=== PATIENT | male | born 1970 | race Caucasian/White ===

== ENCOUNTER 2017-11-25 17:15 | Emergency (ER) | payer BC, SELFPAY ==
[2017-11-25 18:37] VITALS: BP 129/86; PULSE 98; RESP 18; TEMP 36.9; O2SAT 98; BMI 38.0
--- NOTE | 2017-11-25 19:00 | HMH.EDUTC ---
[facility] [place] Clinical Impression: Dog bite of right lower leg Qualifiers: Encounter type: initial encounter Qualified Code(s): S81.851A - Open bite, right lower leg, initial encounter; W54.0XXA - Bitten by dog, initial encounter Disposition: Home, Self-Care Condition on Discharge: Good Instructions: DI for Dog Bite Additional Instructions: * Start antibiotic tomorrow since we gave you the first dose tonight. Be sure to take as directed for the full length of time unless someone tells you otherwise * probiotic can help prevent GI side effects common with this antibiotic. Ask your pharmacist to help you find this over the counter * You were given a tdap vaccine. Notify your primary care so they can update your records. This contains tetanus but also pertuss/whopping cough. * elevate as much as possible. the more elevation above your heart, the less swelling and pain * Tylenol/motrin as needed for pain * Monitor closely. Follow up for any sign of infection (redness, increasing pain, heat, thick discolored drainage, swelling, fever, chills, aches, red streaking or ANY other new signs that are concerning) * Ice 15-20 minutes 4-6 times a day helps with bruising/pain * Go home and shower. Irrigate wounds again while you shower. pat dry. Do NOT cover. Keeping open to air is the best for bites unless you are doing something that will increase risk for infection. * Animal bite form will be faxed to local health department. * Follow up with Primary Care in 2 days for wound check. Prescriptions: Amoxicillin/Potassium Clav [Augmentin 875-125 Tablet] 1 tab PO Q12H #14 tab Referrals: Ravi Stacy MD [Primary Care Provider] - (Return to [facility] or ER for new or worsening symptoms this weekend. Otherwise, see Dr. Stacy Monday for wound check. ) Time of Disposition: 19:26 Medical Decision Making Vital Signs: 11/25/17 18:37 Temperature 98.5 F Temperature Source Temporal Artery Scan Pulse Rate [Right Radial] 98 H Respiratory Rate 18 Blood Pressure [Right Arm] 129/86 Blood Pressure Mean [Right Arm] 100 Blood Pressure Source [Right Arm] Automatic Cuff Blood Pressure Position [Right Arm] Sitting 02 Sat by Pulse Oximetry 98 Oxygen Delivery Method Room Air - Praful Inquiry Pt receiving controlled substance: No [facility] [place] HPI - General Stated complaint: Dog bite 11/25/17 @ 1400, inj to right leg Time Seen by Provider: 11/25/17 18:40 Mode of Arrival: Family Vehicle Source of Information: Patient Limitations: No Limitations Description of Symptoms (Recalled from Triage Doc. by RN): PT STATES HE WAS BITTEN BY A DOG AT A [place] AROUND 1400 THIS AFTERNOON ON THE RIGHT CALF. HEENT Symptoms (Recalled from RN notes): No Resp Symptoms (Recalled from RN notes): No Skin Symptoms (Recalled from RN notes): Yes (2 BITE WOUNDS ON RIGHT CALF FROM DOG) MS Symptoms (Recalled from RN notes): No Functional Status (Recalled from RN notes): NA - History of Present Illness Provider Complaint: c/o dog bite that occurred at approx 2pm. 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 He went over to the nearby house and notified the computer artist. Reports the computer artist became disgruntal and that is when the dog bit him, twice in right calf. Survey Chief depgianni was called out. Police report made and trial attorney already contacted. He states it was those people that suggested he seek treatment because he hasn't had a tetanus shot in as long as he can remember. He stayed however for the remainder of the wedding before coming in. No treatment before arrival. Describes the dog as a pit bull mix, medium size. Pain surrounding bites but denies any possibility of fracture. Declining xray. - Related Data Home Medications Medication Instructions Recorded Confirmed Albuterol Sulfate [Proair 1 puff INHALATION Q4-6H PRN 11/25/17 11/25/17 Respiclick] Budesonide/Formoterol Fumarate 2 puffs INHALATION BID 11/25/17
--- NOTE | 2017-11-25 19:05 | ED_ITS ---
[facility] [place] Clinical Impression: Dog bite of right lower leg Qualifiers: Encounter type: initial encounter Qualified Code(s): S81.851A - Open bite, right lower leg, initial encounter; W54.0XXA - Bitten by dog, initial encounter Disposition: Home, Self-Care Condition on Discharge: Good Instructions: DI for Dog Bite Additional Instructions: * Start antibiotic tomorrow since we gave you the first dose tonight. Be sure to take as directed for the full length of time unless someone tells you otherwise * probiotic can help prevent GI side effects common with this antibiotic. Ask your pharmacist to help you find this over the counter * You were given a tdap vaccine. Notify your primary care so they can update your records. This contains tetanus but also pertuss/whopping cough. * elevate as much as possible. the more elevation above your heart, the less swelling and pain * Tylenol/motrin as needed for pain * Monitor closely. Follow up for any sign of infection (redness, increasing pain , heat, thick discolored drainage, swelling, fever, chills, aches, red streaking or ANY other new signs that are concerning) * Ice 15-20 minutes 4-6 times a day helps with bruising/pain * Go home and shower. Irrigate wounds again while you shower. pat dry. Do NOT cover. Keeping open to air is the best for bites unless you are doing something that will increase risk for infection. * Animal bite form will be faxed to local health department. * Follow up with Primary Care in 2 days for wound check. Prescriptions: Amoxicillin/Potassium Clav [Augmentin 875-125 Tablet] 1 tab PO Q12H #14 tab Referrals: Ravi Stacy MD [Primary Care Provider] - (Return to [facility] or ER for new or worsening symptoms this weekend. Otherwise, see Dr. Stacy Monday for wound check. ) Time of Disposition: 19:26 Medical Decision Making Vital Signs: 11/25/17 18:37 Temperature 98.5 F Temperature Source Temporal Artery Scan Pulse Rate [Right Radial] 98 H Respiratory Rate 18 Blood Pressure [Right Arm] 129/86 Blood Pressure Mean [Right Arm] 100 Blood Pressure Source [Right Arm] Automatic Cuff Blood Pressure Position [Right Arm] Sitting 02 Sat by Pulse Oximetry 98 Oxygen Delivery Method Room Air - Praful Inquiry Pt receiving controlled substance: No [facility] [place] HPI - General Stated complaint: Dog bite 11/25/17 @ 1400, inj to right leg Time Seen by Provider: 11/25/17 18:40 Mode of Arrival: Family Vehicle Source of Information: Patient Limitations: No Limitations Description of Symptoms (Recalled from Triage Doc. by RN): PT STATES HE WAS BITTEN BY A DOG AT A [place] AROUND 1400 THIS AFTERNOON ON THE RIGHT CALF. HEENT Symptoms (Recalled from RN notes): No Resp Symptoms (Recalled from RN notes): No Skin Symptoms (Recalled from RN notes): Yes (2 BITE WOUNDS ON RIGHT CALF FROM DOG) MS Symptoms (Recalled from RN notes): No Functional Status (Recalled from RN notes): NA - History of Present Illness Provider Complaint: c/o dog bite that occurred at approx 2pm. 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 He went over to the nearby house and notified the corporate concierge. Reports the corporate concierge became disgruntal and that is when the dog bit him, twice in right calf. Sheriff lara was called out. Police report made and co director already contacted. He states it was those people that suggested he seek treatment because he hasn't had a tetanus shot in as long as he can remember. He stayed however for the remainder
[2017-11-25 19:32] VITALS: BP 126/85; PULSE 89; RESP 18; TEMP 36.9; O2SAT 99
== END 2017-11-25 19:34 | disposition home or self-care (01) ==
PROVIDERS: Emergency Provider Nurse Practitioner Family; Family Provider Family Medicine; PCP Family Medicine
DX: S81.851A Open bite, right lower leg, initial encounter (principal); W54.0XXA Bitten by dog, initial encounter; J45.909 Unspecified asthma, uncomplicated; Z23 Encounter for immunization
CPT/HCPCS: 90471; 90715; 99202

== ENCOUNTER → 2017-12-29 12:15 | Outpatient (CLI) | payer BC, SELFPAY ==
--- NOTE | 2017-12-29 12:19 | XR_ITS ---
XR cervical spine 5V COMPARISON: HISTORY: Generalized neck pain TECHNIQUE: AP lateral and oblique views and spot view of the odontoid FINDINGS: There is normal curvature and alignment. C1-C7 appear intact. There is minor disc space narrowing at the C6-7 level. Oblique films show normal neural foramina bilaterally. The prevertebral soft tissues are normal and the odontoid is normal. IMPRESSION: Minor degenerative disc disease C6-7 are otherwise normal study
== END ==
PROVIDERS: PCP Family Medicine; Visit Provider Nurse Practitioner
DX: M54.12 Radiculopathy, cervical region (principal)
CPT/HCPCS: 72050

== ENCOUNTER → 2018-02-01 07:45 | Outpatient (CLI) | payer BC, SELFPAY | PROVIDERS: Family Provider Family Medicine; PCP Family Medicine; Visit Provider Family Medicine | DX: M54.12 Radiculopathy, cervical region (principal) ==

== ENCOUNTER → 2018-02-02 15:55 | Outpatient (CLI) | payer OTHER, BC, SELFPAY ==
--- NOTE | 2018-02-02 15:57 | MR_ITS ---
MR cervical spine wo con MR 3-d myelogram/MRCP, HISTORY: Neck pain with popping and left arm pain and numbness and tingling ITS.REASON: CERVICAL RADICULOPATHY ORDERING PHYSICIAN: Mainor Lockwood MD PATIENT AGE: 47 years COMPARISON: 12/29/2017 TECHNIQUE: Standard multiplanar multiecho sequences are performed without contrast. 3-D MIP and myelographic images are also rendered and reviewed FINDINGS: There is normal alignment. The craniocervical junction has an unremarkable appearance. C2-C3 is an unremarkable appearance. C3-C4: There is mild left foraminal narrowing from uncovertebral hypertrophy. Anterior disc bulge is present. C4-C5: Unremarkable C5-C6: Minimal bulging disc. C6-C7: Degenerative disc disease. There is a bilobular disc protrusion a small broad-based right paracentral disc protrusion along with the left paracentral disc protrusion/herniation causing left lateral recess narrowing with mild impingement upon the anterior left aspect of the cord.. There is narrowing of the canal at 10 mm. There is mild contour deformity along the anterior left aspect of the cord. C7-T1: Unremarkable. IMPRESSION: 1. There is a bilobular disc protrusion at C6-C7 a small broad-based right paracentral disc protrusion along with the left paracentral disc protrusion/herniation causing left lateral recess narrowing with mild impingement upon the anterior left aspect of the cord.. There is narrowing of the canal at 10 mm. There is mild contour deformity along the anterior left aspect of the cord 2. Mild left foraminal narrowing at C3-C4 from uncovertebral hypertrophy
== END ==
PROVIDERS: Family Provider Family Medicine; PCP Family Medicine; Visit Provider Family Medicine
DX: M54.12 Radiculopathy, cervical region (principal)
CPT/HCPCS: 72141; 76376

== ENCOUNTER → 2018-07-31 16:35 | Outpatient (CLI) | payer MEDICAID, SELFPAY | PROVIDERS: PCP Nurse Practitioner Family; Visit Provider Nurse Practitioner Family | DX: R07.9 Chest pain, unspecified (principal); Z13.220 Encounter for screening for lipoid disorders | CPT/HCPCS: 93005 ==

== ENCOUNTER → 2018-08-14 12:00 | Outpatient (CLI) | payer MEDICAID, SELFPAY ==
[2018-08-14 12:54] LABS: Alanine Aminotransferase 45 U/L (12-78); Albumin Level 3.5 gm/dL (3.4-5.0); Albumin/Globulin Ratio 0.9 (1.1-1.8); Alkaline Phosphatase 98 U/L (46-116); Anion Gap 13.5 mEq/L (5-15); Aspartate Amino Transferase 18 U/L (15-37); Bilirubin,Total 0.5 mg/dL (0.2-1.0); Blood Urea Nitrogen 11 mg/dL (7-18); Calcium 9.5 mg/dL (8.5-10.1); Carbon Dioxide 29 mmol/L (21.0-32.0); Chloride 102 mmol/L (98-107); Chol/HDL Ratio 3.4 (1-3.5); Cholesterol 132 mg/dL (140-200); Creatinine,Serum 1.13 mg/dL (0.70-1.30); Estimated Glomerular Filt Rate 69 ml/min (>60); GFR (African American) 84 ML/MIN (>60); Glucose 105 mg/dL (74-106); HDL Cholesterol 39 mg/dL (27-67); LDL Cholesterol 73 mg/dL (0-130); Potassium 4.5 mmoL/L (3.5-5.1); Sodium 140 mmol/L (136-145); Total Protein,Serum 7.5 gm/dL (6.4-8.2); Triglycerides 99 mg/dL (30-200); VLDL Cholesterol 20 mg/dL (0-40)
[2018-08-14 12:59] LABS: Hemoglobin A1C 5.6 % (0.0-7.0)
== END ==
PROVIDERS: Visit Provider Nurse Practitioner Family
DX: Z13.220 Encounter for screening for lipoid disorders (principal); Z13.1 Encounter for screening for diabetes mellitus
CPT/HCPCS: 36415; 80053; 80061; 83036

== ENCOUNTER 2020-10-21 13:05 | Day surgery (SDC) | payer OTHER, SELFPAY ==
[2020-10-21] VITALS (8 sets, daily range): BP systolic 97–161; BP diastolic 56–106; PULSE 87–115; RESP 16–18; TEMP 36.6–36.9; O2SAT 93–98; BMI 34.9; BMI 35.7
--- NOTE | 2020-10-21 13:16 | HMH.EDGENADL ---
ED Disposition Clinical Impression: Esophageal obstruction due to food impaction Disposition: Still a Patient Condition on Discharge: Fair Referrals: Ravi Stacy MD [Primary Care Provider] - 3 days - Critical Care Critical Care Time: No Attestation: On , the high probability of a clinically significant, sudden or life threatening deterioration of the following system(s) required my full and direct attention, intervention and personal management. The time I documented below is in addition to time spent performing reported procedures but includes the following listed in this critical care notation. Medical Decision Making - Medical Records Medical records reviewed: Yes: I reviewed the patient's medical records. - Praful Inquiry Pt receiving controlled substance: No Medical Decision Narrative: Attempted nitro and Pepsi with no relief. Patient did vomiting, but still feels like he has food stuck at the sternal notch. Nursing staff called , patient taken to operating room for EGD. On my exam and evaluation, there currently no signs of perforated esophagus. General Adult HPI - General Stated complaint: food stuck in throat, unable to swallow Time Seen by Provider: 10/21/20 13:12 Mode of Arrival: Ambulatory Source of Information: Patient, Spouse Limitations: No Limitations - History of Present Illness HPI narrative: This is a 49-year-old male with a past medical history of suspected eosinophilic esophagitis who presents to the emergency department for food bolus for the last hour. He states he was eating spaghetti has an meatballs, chips, a Coke and feels like he has a food bolus stuck in the sternal notch. He can tolerate some of his saliva, but feels like it builds up and then he has to vomit. He has had several episodes of vomiting over the last hour. He has had several episodes of food bolus before and has had to have esophageal dilation and food bolus retrieval. Sometimes he is able to throw up and remove the food bolus himself. He denies any chest pain, shortness of breath. - Related Data Home Medications Medication Instructions Recorded Confirmed Albuterol Sulfate [Proair 1 puff INHALATION Q4-6H PRN 11/25/17 11/25/17 Respiclick] Budesonide/Formoterol Fumarate 2 puffs INHALATION BID 11/25/17 11/25/17 [Symbicort 160-4.5 Mcg Inhaler] Previous Rx's Medication Instructions Recorded Amoxicillin/Potassium Clav 1 tab PO Q12H #14 tab 11/25/17 [Augmentin 875-125 Tablet] Allergies Allergy/AdvReac Type Severity Reaction Status Date / Time INGREDIENT: NO KNOWN - NO Allergy Unknown Uncoded 09/12/17 14:53 KNOWN DRUG ALLERGY SEAFOOD Allergy Unknown ANAPHYLAXIS Uncoded 09/12/17 14:53 [facility] History - Hepatitis A Screen Attestation statement:: This patient has been screened for Hepatitis A risk factors. I have reviewed the patient's past medical history: Yes Medical History: Reports:: Asthma Denies:: Cancer, Diabetes Mellitus Type 1, Diabetes Mellitus Type 2, Hypertension, MRSA Other Surgeries: Yes: Other (vasectomy) Amputation: No Fractures: No - Social History Smoking Status: Never smoker Alcohol Intake: never ROS Obtained: Yes All systems reviewed & no additional complaints Physical Exam - General General appearance: alert, in no apparent distress - Head Head exam: atraumatic, normocephalic - ENT ENT exam: Present: normal exam, normal oropharynx, mucous membranes moist, other (No foreign body posterior oropharynx) - Neck Neck exam: Present: normal inspection, full ROM, trachea midline, other (No crepitus) - Chest Chest inspection: Present: normal inspection, symmetric chest wall rise, other (No crepitus). Absent: tenderness - Respiratory Respiratory exam: Present: normal lung sounds bilaterally. Absent: respiratory distress - Cardiovascular Cardiovascular exam: Present: regular rate, normal rhythm - Neurological Exam Neurolog
--- NOTE | 2020-10-21 13:47 | PC.NURSE ---
gave pt 1 SL nitro in an attempt to relax muscles and then 5 mins later had pt attempt to chug a soda trying to induce vomiting to dislodge the food. Unsuccessful attempt. Contacted Dr. Almonte in his office and advised him of the patient. HE advised he was still in the office and would call pre-op to have them come and get the patient to take him upstairs. Advised pt of POC and he was agreeable. Samara Espana RN arrived at bedside shortly after and took pt to pre-op.
[2020-10-21 14:52] LABS: Coronavirus 19 IgG Antibody Positive (Negative); Coronavirus 19 IgM Antibody Negative (Negative)
--- NOTE | 2020-10-21 15:26 | HMH.SCOPE ---
- Procedure: Date: 10/21/20 Patient Date of :: 1970 Procedure Performed:: Esophagogastroscopy with foreign body removal Indications:: Esophageal foreign body Performing Provider:: Latrell Almonte MD Referring Provider:: Emergency department Sedation:: Monitored anesthesia care Procedure:: After informed consent was obtained the patient was taken to the endoscopy suite. Sedation ensued after the patient was transferred to the left lateral decubitus position. Pulse, blood pressure, and oxygen saturation were monitored throughout the procedure. The endoscope was advanced into the gastric lumen. Retroflexion within the gastric lumen was accomplished. The gastroscope was carefully removed and the patient was transferred to recovery in stable condition. Please see findings and specimens below for detail. Findings:: Distal esophageal foreign body consistent with food particles removed via Zepeda net in a retrograde fashion Distal esophageal/esophageal junction stricture Gastroscope advanced beyond distal esophageal stricture with minimal difficulty Specimens:: None Recommendations:: Proton pump inhibition Clear liquid diet for 24 hours followed by full liquid diet for 24 hours followed by soft diet Repeat esophagogastroduodenoscopy near future Complications:: No immediate Estimated blood obtained (mL): 0
--- NOTE | 2020-10-21 16:01 | HMH.ANESCL ---
[facility] Anesthesia Checklist - Patient Identification Patient Identification: Arm Band - Structural Data Admitted From: Emergency Dept Planned Operative Procedure/s: removal fb esophagus Consent for Planned Operative Procedure(s) Verified: Yes Verified Documents: Surgical Consent, History and Physical - NPO Status Verified Time NPO: 00:00 - Additional verifications Anesthesia Reactions: No - Airway Assessment C-Spine Mobility Assessed: Yes (mp2) TMJ Mobility Assessed: Yes Dentition: Good Dentition - Neurological Assessment Level of Consciousness: Awake, Alert - Anesthesia Plan Anesthesia Risk discussed: Yes Anesthesia Plan: Verified ASA Class: II (e) Anesthesia Type: MAC [facility] History I have reviewed the patient's past medical history: Yes Medical History: Reports:: Asthma Denies:: Cancer, Diabetes Mellitus Type 1, Diabetes Mellitus Type 2, Hypertension, MRSA, Seizures *Have you ever received a pneumonia vaccine?: No *Have you received a flu vaccine this season?: No Anesthesia experience/problems:: nac Other Surgeries: Yes: Other (vasectomy) Amputation: No Fractures: No - *Social History Last grade of school completed: Advanced degree Smoking Status: Never smoker Alcohol Intake: never Substance Use Type: denies use *Occupational Status:: employed *Travel in the last 8 weeks: None Family Hx:: No significant family history
== END 2020-10-21 15:55 | disposition home or self-care (01) ==
LOC: ER 13:35 → SDC 13:39
PROVIDERS: Surgery; Emergency Provider Emergency Medicine; PCP Family Medicine; Visit Provider Surgery
PROC: 0DJ08ZZ Inspection of Upper Intestinal Tract, Via Natural or Artificial Opening Endoscopic (ICD-10-PCS; CPT 43235; principal; 2020-10-21 15:00)
DX: K22.2 Esophageal obstruction (principal); T18.128A Food in esophagus causing other injury, initial encounter; J45.909 Unspecified asthma, uncomplicated
CPT/HCPCS: 43215; 86328; 99283

== ENCOUNTER → 2020-11-03 08:42 | Outpatient (CLI) | payer OTHER, SELFPAY ==
--- NOTE | 2020-11-03 08:43 | FL_ITS ---
PROCEDURE: FL BARIUM SWALLOW CLINICAL INDICATION: difficulty swallowing COMPARISON: No exams were available for comparison TECHNIQUE: In the upright position the patient was observed to swallow barium in both the AP and lateral view. The cervical esophagus was examined under fluoroscopy with images obtained. The patient was then placed prone in the right anterior oblique position and was observed to swallow barium with Valsalva technique . FLUOROSCOPY TIME: 1 minutes and 52 seconds FINDINGS: There was no evidence of aspiration. There was normal peristalsis. No filling defects or mucosal abnormalities. There is persistent smooth narrowing of the distal esophagus. This is felt to have been due to spasm. A barium tablet was given but do not immediately pass but subsequently did pass once the esophagus relaxed. No hiatal hernia evident. There has been prior anterior cervical disc fusion at C6-C7 IMPRESSION: Distal esophageal spasm which subsided during the exam. Otherwise negative barium swallow Dictated by: Fredy Mayes MD 11/03/2020 14:51 Fredy Mayes MD in [place] 11/03/2020 14:51
== END ==
PROVIDERS: PCP Family Medicine; Visit Provider Surgery
DX: R13.10 Dysphagia, unspecified (principal)
CPT/HCPCS: 74220

== ENCOUNTER 2022-03-12 19:48 | Emergency (ER) | payer BC, SELFPAY ==
[2022-03-12 20:20] VITALS: BP 151/88; PULSE 107; RESP 18; TEMP 37.8; O2SAT 99; BMI 38.0
--- NOTE | 2022-03-12 20:28 | HMH.EDUTC ---
[facility] – [place] Disposition Clinical Impression: Viral syndrome, Exposure to COVID-19 virus Disposition: Home, Self-Care Condition on Discharge: Good Instructions: DI for Viral Syndrome, DI for COVID-19 (Suspected or Confirmed ), Preventing the Spread of Coronavirus Discharge Instructions Additional Instructions: Drink plenty of fluids. Take tylenol for pain or fever. Return if you begin to have difficulty breathing. Follow up with your regular doctor. GO TO THE ER FOR ANY WORSENING SYMPTOMS Quarantine until you know the results of your covid-19 test. If it is positive, Notify your school or workplace of your results and follow their instructions regarding return to work/school. Prescriptions: Albuterol Sulfate [Albuterol Sulfate Hfa] 2 puffs IH Q6HP PRN 30 Days #1 each PRN Reason: Shortness Of Breath Transmission Status: Received by [id number] Ondansetron [Zofran 4mg ODT] 4 mg PO Q8HP PRN #20 tab PRN Reason: Nausea Transmission Status: Received by [id number] Referrals: Ravi Stacy MD [Primary Care Provider] - Time of Disposition: 20:33 Medical Decision Making - Medical Records Medical records reviewed: No: I reviewed the patient's medical records. - Praful Inquiry Pt receiving controlled substance: No Vital Signs: 03/12/22 20:20 03/12/22 20:38 Temperature 100.0 F H 100.0 F H Temperature Source Oral Pulse Rate 107 H Pulse Rate [Left Radial] 107 H Respiratory Rate 18 18 Blood Pressure 151/88 H Blood Pressure [Right Arm] 151/88 H Blood Pressure Mean [Right Arm] 109 02 Sat by Pulse Oximetry 99 - Lab Data Lab results reviewed: Yes: I reviewed the patient's lab results. [facility] – [place] HPI - General Stated complaint: Covid test Time Seen by Provider: 03/12/22 20:30 - History of Present Illness Provider Complaint: He has been having chills, fatigue, malaise and a cough since yesterday. - Related Data Home Medications Medication Instructions Recorded Confirmed Albuterol Sulfate [Proair 1 puff INHALATION Q4-6H PRN 11/25/17 11/11/20 Respiclick] Budesonide/Formoterol Fumarate 2 puffs INHALATION BID 11/25/17 11/11/20 [Symbicort 160-4.5 Mcg Inhaler] esomeprazole magnesium 40 mg 40 mg PO BID cap 10/28/20 11/11/20 capsule,delayed release Previous Rx's Medication Instructions Recorded Albuterol Sulfate [Albuterol 2 puffs IH Q6HP PRN 30 Days #1 each 03/12/22 Sulfate Hfa] Ondansetron [Zofran 4mg ODT] 4 mg PO Q8HP PRN #20 tab 03/12/22 Allergies Allergy/AdvReac Type Severity Reaction Status Date / Time dairy Allergy Severe Difficulty Uncoded 11/11/20 14:28 Breathing INGREDIENT: NO KNOWN - NO Allergy Unknown Uncoded 11/11/20 14:28 KNOWN DRUG ALLERGY SEAFOOD Allergy Unknown ANAPHYLAXIS Uncoded 11/11/20 14:28 [facility] History - Hepatitis A Screen Attestation statement:: This patient has been screened for Hepatitis A risk factors. I have reviewed the patient's past medical history: Yes Medical History: Reports:: Asthma Denies:: Cancer, Diabetes Mellitus Type 1, Diabetes Mellitus Type 2, Hypertension, MRSA, Seizures Other Surgeries: Yes: EGD, Other Amputation: No Fractures: No - Social History Smoking Status: Never smoker Alcohol Intake: never Substance Use Type: denies use Occupational Status: employed Family Hx:: No significant family history ROS Obtained: Yes All systems reviewed & no additional complaints - Constitutional Constitutional: Reports as per HPI - Eyes Eyes: Denies eye discharge - ENT Ears, Nose, Mouth, and Throat: Reports as per HPI - Cardiovascular Cardiovascular: Denies chest pain - Respiratory Respiratory: Denies chest congestion, Reports cough Physical Exam - General General appearance: alert, in no apparent distress - Head Head exam: atraumatic, normocephalic, normal inspection - Eye Eye exam: Present: normal appearance, PERRL, EOMI - ENT ENT exam: Presen
[2022-03-12 20:38] VITALS: BP 151/88; PULSE 107; RESP 18; TEMP 37.8
== END 2022-03-12 20:39 | disposition home or self-care (01) ==
PROVIDERS: Emergency Provider Nurse Practitioner Family; PCP Family Medicine
DX: U07.1 COVID-19 (principal); J45.909 Unspecified asthma, uncomplicated; Z79.51 Long term (current) use of inhaled steroids; Z91.011 Allergy to milk products; Z91.013 Allergy to seafood
CPT/HCPCS: 99213; C9803; G0463; U0003; U0005

== ENCOUNTER 2022-08-21 08:37 | Emergency (ER) | payer BC, SELFPAY ==
[2022-08-21 09:45] VITALS: BP 148/91; PULSE 88; RESP 18; TEMP 36.8; O2SAT 99; BMI 37.2
[2022-08-21 10:03] VITALS: BP 148/91; PULSE 88; RESP 18; TEMP 36.8; O2SAT 99
--- NOTE | 2022-08-21 10:06 | EXP.UTC ---
Discharge Plan Disposition Patient Disposition: Home, Self-Care Condition: Good Prescriptions Prescriptions: New budesonide-formoterol [Symbicort] 160-4.5 mcg/actuation HFA aerosol inhaler 2 puff inhalation BID 30 Days Qty: 10.2 0RF albuterol sulfate [Proventil HFA] 90 mcg/actuation HFA aerosol inhaler 1 inh inhalation Q6H PRN (Reason: shortness of breath or wheezing) Qty: 8.5 0RF No Action esomeprazole magnesium [Nexium] 40 mg capsule,delayed release(DR/EC) 40 mg PO BID budesonide-formoterol 0 HFA aerosol inhaler 2 puffs INHALATION BID Label Comments: albuterol sulfate 108 aerosol powdr breath activated 1 puff INHALATION Q4-6H PRN (Reason: ASTHMA) Label Comments: albuterol sulfate 8.5 GM HFA aerosol inhaler 2 puffs IH Q6HP PRN (Reason: Shortness Of Breath) 30 Days Qty: 1 5RF ondansetron 4 MG tablet,disintegrating 4 mg PO Q8HP PRN (Reason: Nausea) Qty: 20 0RF Referrals Follow up/Referrals: Ravi Stacy MD [Primary Care Provider] - See instructions Activity Restrictions/Add. Instructions Additional Instructions/Restrictions: Make sure to make appointment with your PCP Return if needed Straight to ER if any life threatening symptoms Clinical Impressions Clinical Impression: Encounter for medication refill Instructions Patient Instructions: Asthma -- Adult Discharge ED Provider: Violetta Hagan [facility] General Stated complaint: Wheezing, lung congestion Mode of Arrival: Ambulatory Source of Information: Patient Limitations: No Limitations Time Seen by Provider: 08/21/22 10:06 Description of Symptoms (Recalled from Triage Doc. by RN): PATIENT C/O WHEEZING AND REPORTS BEING OUT OF HIS SYMBICORT HEENT Symptoms (Recalled from RN notes): No Resp Symptoms (Recalled from RN notes): Yes Skin Symptoms (Recalled from RN notes): No MS Symptoms (Recalled from RN notes): No Functional Status (Recalled from RN notes): WNL History of Present Illness Provider Complaint: Patient states that he missed his appointment with his PCP to get his symbicort refilled and when he goes without it he gets wheezing at times States that he woke up this morning feeling a little wheezy so he came in to see if he could get a refill on symbicort and albuterol to get him through until he can see his PCP states that he feels better now that he is up and moving around Related Data Home Medications Medication Instructions Recorded Confirmed albuterol sulfate 90 mcg/actuation 1 puff inhalation Q4-6H PRN ASTHMA 11/25/17 11/11/20 breath activated powder inhaler budesonide-formoterol HFA 160 2 puffs inhalation BID Asthma 11/25/17 11/11/20 mcg-4.5 mcg/actuation aerosol inhaler esomeprazole magnesium 40 mg 40 mg PO BID 10/28/20 11/11/20 capsule,delayed release (Nexium) Previous Rx's Medication Instructions Recorded albuterol sulfate 90 mcg/actuation 2 puffs inhalation Q6HP PRN 03/12/22 aerosol inhaler Shortness Of Breath 30 days #1 ea ondansetron 4 mg disintegrating 4 mg PO Q8HP PRN Nausea #20 tabs 03/12/22 tablet albuterol sulfate 90 mcg/actuation 1 inh inhalation Q6H PRN shortness 08/21/22 aerosol inhaler (Proventil HFA) of breath or wheezing #8.5 grams budesonide-formoterol HFA 160 2 puff inhalation BID 30 days 08/21/22 mcg-4.5 mcg/actuation aerosol #10.2 grams inhaler (Symbicort) Allergies Allergy/AdvReac Type Severity Reaction Status Date / Time Fish Containing Products Allergy Verified 08/21/22 10:02 Milk Containing Products Allergy Verified 08/21/22 10:02 Worker's Comp Is this a Worker's Comp case?: No PFSH PFSH Medical History (Updated 08/21/22 @ 10:16 by Violetta Hagan APRN) Asthma Social History (Updated 08/21/22 @ 10:01 by Phyllis Wallace RN) Smoking Status: Never smoker alcohol intake: never substance use type: denies use current occupational status: employed Travel in the last 8 weeks: None caffeine: Yes
== END 2022-08-21 10:22 | disposition home or self-care (01) ==
PROVIDERS: Emergency Provider Nurse Practitioner; PCP Family Medicine
DX: J45.909 Unspecified asthma, uncomplicated (principal); R11.0 Nausea; Z79.51 Long term (current) use of inhaled steroids; Z79.899 Other long term (current) drug therapy; Z91.011 Allergy to milk products; Z91.013 Allergy to seafood
CPT/HCPCS: 99212; G0463

== ENCOUNTER → 2025-05-15 10:17 | Outpatient (CLI) | payer BC, SELFPAY ==
--- OUTSIDE RECORDS SUMMARY | 2023-11-21 12:30 | XMS_ITS ---
Author Organization [facility] Address [address] [place] [phone] Care Team Providers Care Lacquer Coater Name Role Phone Hemant Echavarria Primary Care Provider Janeth Stacy Reza Unavailable [phone] Allergies No Known Allergies Results Component Value Reference Range Notes Urinalysis - Inhouse Reviewed date:11/22/2023 11:01:15 AM Interpretation: Performing Lab: Notes/Report: Color/Clarity straw/clear Leuk neg Nitrite neg Urobili 3.2 Protein neg pH 7.0 Blood 2+ Sp. Gr. 1.010 Ketone neg Bili neg Gluc neg REASON FOR VISIT discolored urine, concerns of kidney stones Medications Medication SIG (Take, Route, Frequency, Duration) Notes Start Date End Date Status Omeprazole 40 MG 1 cap(s) orally once a day prn Active Symbicort 160-4.5 MCG/ACT INHALE 2 PUFFS INTO THE LUNGS TWICE DAILY; Duration: 90 Active Betamethasone Dipropionate Aug 0.05 % 1 application Externally Two times a day 06/08/2023 Not-Taking Albuterol Sulfate HFA 108 (90 Base) MCG/ACT INHALE 2 PUFFS EVERY 4 HOURS NEEDED; Duration: 30 Active Aspir-Low 81 MG 1 tablet Orally Once a day; Duration: 30 day(s) Active Paxlovid (300/100) 20 x 150 MG & 10 x 100MG 3 tablets Orally Twice a day; Duration: 5 day(s) 10/09/2023 Not-Taking Vital Signs Weight 268.6 lbs 11/21/2023 Blood pressure systolic 140 mm Hg 11/21/19 24 Blood pressure diastolic 86 mm Hg 024 Heart Rate 104 /min 11/21/2023 Height 69 in 11/21/2023 BMI 39.66 kg/m2 11/21/2023 Encounters Encounter Location Date Provider Diagnosis [facility] [address] [facility] [address] [place] [id number] 11/21/2023 Janeth Stacy Hematuria R31 .9 Assessments Encounter Date Diagnosis (ICD Code) Assessment Notes Treatment Notes Treatment Clinical Notes Section Notes 11/21/2023 Hematuria (ICD-10 - R31.9) He may have initially passed a small stone and is having some residual discomfort and hematuria. Suggest he continue to drink plenty of fluids and repeat urinalysis in 1 to 2 weeks to assure resolution of hematuria. Plan Of Treatment Treatment Notes Assessment Notes Hematuria He may have initiall y passed a small stone and is having some residual discomfort and hematuria. Suggest he continue to drink plenty of fluids and repeat urinalysis in 1 to 2 weeks to assure resolution of hematuria. Next Appt Details Follow Up: 1 Week, 2 Weeks f or UA only, Reason: Progress Notes * Philly DEEeDOB:1970 ( 54 yo M)Acc No.[id number]:11/21/2023 Progress Notes Patient: Pelon URBAN Provider: Janeth Stacy M.D. :1970 A ge:53 Y S ex:Male Date:11/21/2023 Address:[address] [place] [address], [id number] Pcp:Hemant Echavarria Subjective: * Chief Complaints: * 1 . Discolored urine, concerns of kidney stones. * HPI: M jose cruz Reproductive: He has a past history of kidney stones and 2 weeks ago noticed a single episode of dark-colored urine but no sho blood. There was no associated flank pain. He has been drinking extra fluids and his urine color now seems normal but he has noticed some mild urethral discomfort intermittently. * ROS: D ERMATOLOGY: no R surinder. n o H marvel. G ASTROENTEROLOGY: no N ausea. n o V omiting. n o D iarrhea.? U ROLOGY: no D ifficulty urinating. n o B lood in urine. * Medical History: A sthma, Kidney stones, Heart palpitations due to caffeine intake, Environmental allergies. * Surgical History: v asectomy , kidney stones , Cervical Discectomy - Dr. Soliman 06/18/18, Umbilical Hernia Repair 12/15/2022. * Family History: F ather: alive 80 yrs, diagnosed with Diabetes, Hypertension. M other: alive 86 yrs. 2 brother(s) . 3 son(s) . . 3 step sisters, 1 step brother. * Social History: C URRENT TOBACCO USE: No . C affeine: yes, frequency: 2 sodas daily. Home smoke detector use: yes. Alcohol: No. * Medications: T aking Aspir-Low 81 MG Tablet Delayed Release 1 tablet Orally Once a day , Taking Omeprazole 40 MG Capsule Delayed Release 1 cap(s) orally once a day prn , Taking Symbicort 160-4.5 MCG/ACT Aerosol INHALE 2 PUFFS INTO THE LUNGS TWICE DAILY , Taking Albuterol Sulfate HFA 108 (90 Base) MCG/ACT Aerosol Solution INHALE 2 PUFFS EVERY 4 HOURS NEEDED , Not-Taking Betamethasone Dipropionate Aug 0.05 % Cream 1 application Externally Two times a day , Not-Taking Paxlovid (300/100) 20 x 150 MG & 10 x 100MG Tablet Therapy Pack 3 tablets Orally Twice a day , Medication List reviewed and reconciled with the patient * Allergies: N .K.D.A. Objective: * Vitals: W t:268.6, Temp:98.4, BP:140/86, HR:104, O2 Sat:99% on RA, Nurse:CLAUDIA, Ht: 69, BMI:39.66. * Examination: G eneral Examination: General Appearance: N AD. A bdomen: Soft and nontender. No CVA tenderness. Assessment: * Assessment: 1. H ematuria - R31.9 (Primary) Plan: * Treatment: Value Reference Range C olor/Clarity straw/clear * L euk neg * N itrite neg * U robili 3.2 * P rotein neg * p H 7.0 * B lood 2+ * S p. Gr. 1.010 * K etone neg * B lis neg * G willie neg * Ileana John 11/21/2023 4: 23:27 PM > , Provider reviewed results while patient in office. Notes: He may have initially passed a small stone and is having some residual discomfort and hematuria. Suggest he continue to drink plenty of fluids and repeat urinalysis in 1 to 2 weeks to assure resolution of hematuria.?? * Procedure Codes: 8 1002 Urinalysis, no micro, 74896 PULSE OX * Follow Up: 1 Week, 2 Weeks for UA only * Images: Billing Information: * Visit Code: 36198 Office Visit, Est Pt., Level 3. * Procedure Codes: 11859 Urinalysis, no micro. 90737 PULSE OX. * Electronic signature of Janeth Stacy MD on 05/15/2025 at 10:21 AM EDT Sign off status: Pending * Provider: Janeth Stacy M.D. Date: 0 11/21/2023 Generated for Aki tapia/Aida/Saúlitting on: 0 05/15/2025 10:21 AM EDT History and Physical Notes * Examination Category Sub-Category Detail Notes Category Not es General Examination Abdomen: Soft and nontender. N o CVA tenderness General Appearance: NAD
--- OUTSIDE RECORDS SUMMARY | 2024-07-23 07:15 | XMS_ITS ---
Author Organization [facility] Address [address] [facility] [address] [place] [phone] Care Team Providers Care Fabric Worker Name Role Phone Hemant Echavarria Primary Care Provider Janeth Stacy Unavailable [phone] Allergies No Known Allergies REASON FOR VISIT Poison [place] or Shingles Medications Medication SIG (Take, Route, [...] Encounter Location Date Provider Diagnosis Jorge [address] [facility] [address] [place] [phone] 07/23/2024 Janeth Stacy Shingles B02.9 Assessments Encounter [...] * Phil[place] DEEeDOB:1970 ( 54 yo M)Acc No.[id number]:07/23/2024 Progress Notes Patient: Pelon URBAN Provider: Janeth Stacy M.D. :1970 A ge:53 Y S ex:Male Date:07/23/2024 Address:[address] [place] [address], [id number] Pcp:Hemant Echavarria Subjective: * Chief Complaints: * 1 . Poison [place] or Shingles. * HPI: D ermatology: 53 [...] x 5 cm. Assessment: * Assessment: 1. [facility] - B02.9 (Primary) Plan: * Treatment: * Procedure Codes: 9 4760 PULSE OX * Follow Up: p rn * Images: Billing Information: * Visit Code: 66595 Office Visit, Est Pt., Level 3. * Procedure Codes: 50898 PULSE OX. * Electronic signature of Janeth Stacy MD on 05/15/2025 at 10:21 AM EDT Sign off status: Pending * Provider: Janeth Stacy M.D. Date: Generated for Aki tapia/Aida/Saúlitting on: 0 05/15/2025 [...]
--- OUTSIDE RECORDS SUMMARY | 2025-04-24 10:30 | XMS_ITS ---
Author Organization [facility] Address [address] [place] [id number] Care Team Providers Care Hand Dry Cleaner Name Role Phone Hemant Echavarria Primary Care Provider [phone] Janeth Stacy Unavailable [phone] Allergies No Known Allergies Reason For Referral Reason Risk stratification due to strong family hx of heart disease Diagnosis 1 Family history of he art disease (Z82.49) Ref[facility] Referring Provider First Name Janeth Cobb Referring Provider Last Name Regis Referring Provider Speciality Family Pra ctice Referred Provider Rayshawn Davis Referred Provider Specialty Cardiovascul ar Disease General Notes Kanwal Pineda 2024 10:48:59 AM > faxed to [facility] Cardiology, Kanwal Pineda 05/01/2025 10:36:43 AM > received by Dotty at [facility] Cardiology Referral Priority Routine REASON FOR VISIT [...] W/U Status Risk Notes Problem Sleep apnea (G47.30) Active confirmed Problem Overweight (467493548) Overweight (E66.3) Active confirmed Vital Signs Weight 261.2 lbs 04/24/2025 Blood pressure systolic 120 mm Hg 04/24/20 25 Blood pressure diastolic 80 mm Hg 025 Heart Rate 82 /min 04/24/2025 Height 69 in 04/24/2025 BMI 38.57 kg/m2 04/24/2025 Encounters Encounter Location Date Provider Diagnosis [facility] [address] [place] [id number] 04/24/2025 Janeth Stacy Screening for diabet es [...] Treatment Pending Test Test Name Order Date Lipid Profile 04/24/2025 Prostate Specific Antigen (PSA) 04/24/20 25 Glycohemoglobin (HbA1C) 04/24/2025 CMP 04/24/2025 sleep study 04/24/2025 Cologuard 04/24/2025 Referrals Referral Date Details 04/25/2025 04/25/2025, Risk str atification due to strong family hx of heart disease, Rayshawn Davis Next Appt Details Follow Up: via phone to repo rt test results, Reason: Progress Notes * Christopher DEEOB:1970 ( 54 yo M)Acc No.[id number]:04/24/2025 Progress Notes Patient: Andrea KRISHNAMURTHY Pelon Provider: Janeth Stacy M.D. :1970 A ge:54 Y S ex:Male Date:04/24/2025 Address:[address] [place] [address] [place], [id number] Pcp:Hemant Echavarria Subjective: * Chief Complaints: * 1 . Wellness visit/wants referrals. * HPI: H PI: Patient comes in for an annual checkup and has several concerns. This 56-year-old brother last year with a heart attack. Pelon denies any cardiac symptoms but would like to see a pad hand for risk stratification. E NT/respiratory: His tells [...] of heart disease 3.?Screening for colon cancer?LAB: Cologuard * Labs: * L ab: Glycohemoglobin (HbA1C) L ab: Prostate Specific Antigen (PSA) L ab: CMP L ab: Lipid Profile * Procedure Codes: 1 036F TOBACCO NON-USER, 3074F SYST BP LT 130 MM HG, 3079F DIAST BP 80-89 MM HG * Follow Up: v ia phone to report test results * Images: Billing Information: * Visit Code: 76353 Office Visit, Est Pt., Level 4. * Procedure Codes: 1036F TOBACCO NON-USER. 3074F SYST BP LT 130 MM HG. 3079F DIAST BP 80-89 MM HG. * Electronic signature of R Farshad Stacy , MD on 05/15/2025 at 10:20 AM EDT Sign off status: Pending * Provider: Janeth Stacy M.D. Date: 0 04/24/2025 Generated for Aki tapia/Aida/Priti on: 0 05/15/2025 10:20 AM EDT History and Physical Notes * [...]
--- OUTSIDE RECORDS SUMMARY | 2025-05-15 10:21 | XMS_ITS | Patient Health Record ---
Author Organization [facility] Address [address] [place] [phone] Care Team Providers Care Wax Blender Name Role Phone Hemant Echavarria Primary Care Provider Janeth Stacy Unavailable [phone] Allergies No Known Allergies Reason For Referral Reason Risk stratification due to strong family hx of heart disease Diagnosis 1 Family history of he art disease (Z82.49) [facility] Referring Provider First Name Janeth Cobb Referring Provider Last Name Regis Referring Provider Speciality Family Pra ctice Referred Provider Rayshawn Davis Referred Provider Specialty Cardiovascul ar Disease General Notes Kanwal Pineda 2024 10:48:59 AM > faxed to [facility] Cardiology, Kanwal Pineda 05/01/2025 10:36:43 AM > received by Dotty at [facility] Cardiology Referral Priority Routine Medications Medication SIG (Take, Route, Frequency, Duration) [...] Once a day; Duration: 30 day(s) Active Immunizations Vaccine Route Administration Date Status Comme nts COVID 19 Pfizer Unknown 05/13/2021 Administered Problems Problem Type SNOMED Code ICD Code Onset Dates Problem Status W/U Status Risk Notes Problem Gastroesophageal reflux disease (409188608) GERD (gastroesophage al reflux disease) (K21.9) Active confirmed Problem Seasonal allergy (901601956) Seasonal allergies (J30.2) Active confirmed Problem Asthma (925213947) Asthma (J45.909) Active confirmed Problem Sleep apnea (09809171) Sleep apnea (G47.30) Active confirmed Problem Overweight (912605865) Overweight (E66.3) Active confirmed Problem Excessive thirst (78896600) Polydipsia (R63.1) Active confirmed Problem Exacerbation of intermittent asthma (928926170) Asthmatic bronchitis, mild intermittent, with acute exacerbation (J45.21) Active confirmed Problem Displacement of cervical intervertebral disc without myelopathy (85986437) Herniated disc, cervical (M50.20) Active confirmed Vital Signs Heart Rate 82 /min 04/24/2025 Blood pressure diastolic 80 mm Hg 04/24/2025 Height 69 in 04/24/2025 Blood pressure systolic 120 mm Hg 04/24/2025 Weight 261.2 lbs 04/24/2025 BMI 38.57 kg/m2 04/24/2025 Encounters Encounter Location Date Provider [facility] [address] [place] [address] [place] [phone] 07/23/2024 Janeth Stacy [address] [facility] [address] [phone] 04/24/2025 Janeth Stacy Screening for diabet es [...] Recommmend he consider taking the shingles vaccine 04/24/2025 Screening for diabetes mellitus (ICD-10 - [...] CMP 04/24/2025 sleep study 04/24/2025 Cologuard 04/24/2025 Insurance Providers Payer Name Payer Address Payer Phone Subscriber Number Group Number Insured Name Patient Relationship to Insured Coverage Start Date Coverage End Date FANNY WARNER [address] [place] [address] [id number] LEILA, Pelon Self - patient is the insured Medical (General) History Medical History History ICD Code Asthma kidney stones heart palpitations due to caffeine intak e Environmental allergies Surgical History Surgery Date(Month/Year) vasectomy kidney stones Cervical Discectomy - Dr. Soliman 06/18/18 Umbilical Hernia Repair 12/15/2022 Hospitalization History Reason Date(Month/Year)
== END ==
LOC: SL 10:18
PROVIDERS: PCP Family Medicine; Visit Provider Family Medicine
DX: G47.33 Obstructive sleep apnea (adult) (pediatric) (principal); E66.9 Obesity, unspecified; J45.909 Unspecified asthma, uncomplicated
CPT/HCPCS: G0399

== ENCOUNTER 2025-06-05 10:17 | Outpatient (CLI) | payer BC, SELFPAY ==
--- OUTSIDE RECORDS SUMMARY | 2024-07-23 07:15 | XMS_ITS ---
Author Organization [facility] Address [address] [facility] [address] [place] [phone] Care Team Providers Care Software Tools Build Engineer Name Role Phone Heamnt Echavarria Primary Care Provider Janeth Stacy Unavailable [phone] Allergies No Known Allergies REASON FOR VISIT Poison [place] or Shingles Medications Medication SIG (Take, Route, [...] Encounter Location Date Provider Diagnosis Jorge [address] [facility] [address] [place] [phone] 07/23/2024 Janeth Stacy Shingles B02.9 Assessments Encounter [...] * Phil[place] DEEeDOB:1970 ( 54 yo M)Acc No.[id number]:07/23/2024 Progress Notes Patient: Pelon URBAN Provider: Janeth Stacy M.D. :1970 A ge:53 Y S ex:Male Date:07/23/2024 Address:[address] [place] [address], [facility] [id number] Pcp:Hemant Echavarria Subjective: * Chief Complaints: * 1 . Poison [place] or Shingles. * HPI: D ermatology: 53 [...] x 5 cm. Assessment: * Assessment: 1. [facility] - B02.9 (Primary) Plan: * Treatment: * Procedure Codes: 9 4760 PULSE OX * Follow Up: p rn * Images: Billing Information: * Visit Code: 18902 Office Visit, Est Pt., Level 3. * Procedure Codes: 40407 PULSE OX. * Electronic signature of Janeth Stacy MD on 06/05/2025 at 10:31 AM EDT Sign off status: Pending * Provider: Janeth Stacy M.D. Date: Generated for Aki tapia/Aida/Saúlitting on: 0 06/05/2025 10:31 AM EDT History and Physical Notes * [...]
--- OUTSIDE RECORDS SUMMARY | 2025-04-24 10:30 | XMS_ITS ---
Author Organization [facility] Address [address] [place] [phone] Care Team Providers Care Executive Advisor Name Role Phone Hemant Echavarria Primary Care Provider Janeth Stacy Unavailable [phone] Allergies No Known Allergies Results Component Value [...] of he art disease (Z82.49) Referral [facility] Referring Provider First Name Janeth Cobb Referring Provider Last Name Regis Referring Provider Speciality Family Pra ctice Referred Provider Rayshawn Davis Referred Provider Specialty Cardiovascul ar Disease General Notes Kanwal Pineda 2024 10:48:59 AM > faxed to [facility] Cardiology, Kanwal Pineda 05/01/2025 10:36:43 AM > received by Dotty at [facility] Cardiology Referral Priority Routine REASON FOR [...] W/U Status Risk Notes Problem Sleep apnea (72102779) Sleep apnea (G47.30) Active confirmed Problem Overweight (707535042) Overweight (E66.3) Active confirmed Vital Signs Weight 261.2 lbs 04/24/2025 Blood pressure systolic 120 mm Hg 04/24/20 25 Blood pressure diastolic 80 mm Hg 025 Heart Rate 82 /min 04/24/2025 Height 69 in 04/24/2025 BMI 38.57 kg/m2 04/24/2025 Encounters Encounter Location Date Provider Diagnosis [facility] [address] [facility] [address] [place], [place] [phone] 04/24/2025 Janeth Stacy Screening for diabet es [...] * Philly DEEeDOB:1970 ( 54 yo M)Acc No.[id number]:04/24/2025 Progress Notes Patient: Pelon URBAN Provider: Janeth Stacy M.D. :1970 A ge:54 Y S ex:Male Date:04/24/2025 Address:[address] [place] [address], [place], [place] Pcp:Hemant Echavarria Subjective: * Chief Complaints: * 1 . Wellness visit/wants referrals. * HPI: H PI: Patient comes in for an annual checkup and has several concerns. This 56-year-old brother last year with a heart attack. Pelon denies any cardiac symptoms but would like to see a fiscal clerk for risk stratification. E NT/respiratory: His tells [...] * Images: Billing Information: * Visit Code: 28980 Office Visit, Est Pt., Level 4. * Procedure Codes: 1036F TOBACCO NON-USER. 3074F SYST BP LT 130 MM HG. 3079F DIAST BP 80-89 MM HG. * Electronic signature of Janeth Stacy MD on 06/05/2025 at 10:30 AM EDT Sign off status: Pending * Provider: Janeth Stacy M.D. Date: 0 04/24/2025 Generated for Aki ng/Aida/eTransmitting on: 0 06/05/2025 10:30 AM EDT History and Physical Notes * [...]
--- OUTSIDE RECORDS SUMMARY | 2025-05-20 04:29 | XMS_ITS ---
Author [facility] [address] [place] [phone] Care Team Providers Care Machine Iii Coremaker Name Role Phone Hemant Echavarria Primary Care Provider [phone] Janeth Stacy Unavailable [phone] Reason For Referral Reason home sleep study did not show any significant sleep apnea. He reported symptoms of heavy snoring at his last OV. If there are still concerns about sleep apnea, recommend referral to sleep specialist for possible supervised sleep study Diagnosis 1 Sleep apnea (G47.30) [facility] Referring Provider First Name Janeth Cobb Referring Provider Last Name Regis Referring Provider Speciality Family Pra ctice Referred Provider Nichelle Subramanian Referred Provider Specialty Neurology General Notes Kanwal Pineda 2024 11:27:15 AM > faxed to [facility] Neurology, Kanwal Pineda 05/23/2025 10:57:28 AM > confirmed received by Serena in neurology Referral Priority Routine REASON FOR VISIT Test Results and referral Encounters Encounter Location Date Provider Diagnosis Jorge [address] [place] [phone] 05/20/2025 Janeth Stacy Sleep apnea G47.30 Assessments Encounter Date Diagnosis (ICD Code) Assessment Notes Treatment Notes Treatment Clinical Notes Section Notes 05/20/2025 Sleep apnea (ICD-10 - G47.30) Plan Of Treatment Referrals Referral Date Details 05/21/2025 05/21/2025, home sle ep study did not show any significant sleep apnea. He reported symptoms of heavy snoring at his last OV. If there are still concerns about sleep apnea, recommend referral to sleep specialist for possible supervised sleep study, Nichelle Subramanian Progress Notes * Philly DEEeDOB:1970 ( 54 yo M)Acc No.[id number]:05/20/2025 Patient: Pelon URBAN :1970 A ge:54 Y S ex:Male Address:[address] [place] [address], [place], [place], [facility] Subjective: * Chief Complaints: * T est Results and referral * Medical History: * Surgical History: * Hospitalization/Major Diagno stic Procedure: * Medications: Objective: * Vitals: * Physical Examination: Assessment: * Assessment: 1. S leep apnea - G47.30 (Primary) Plan: * Treatment: * Procedure Codes: * true * Date: Generated for Printi ng/Faanag/eTransmitting on: 0 06/05/2025 10:30 AM EDT Consultation Request Notes Referral Date Referring Provider Referred Provider Not es 05/21/2025 Janeth Stacy Maria home sleep study did not show any significant sleep apnea. He reported symptoms of heavy snoring at his last OV. If there are still concerns about sleep apnea, recommend referral to sleep specialist for possible supervised sleep study
--- NOTE | 2025-06-05 10:30 | CA_ITS ---
APPROVED REPORT Exam: Exercise Treadmill Technologist: Karen Barahona Stress Nurse: Aliyah Snowden Ht: 5 ft 8 in Wt: 260 lbs BSA: 2.28 m2 HR: 86 bpm BP: 130/86 mmHg Rhythm: Sr/PVC Medical History Medications: Albuterol, Symbicort, Esomeprazole Magnesium Allergies: Fish, Milk Cardiac Risk Factors: FHX of CAD Stress Test Details Test: Exercise stress testing was performed using a Egale protocol. HR Resting HR: 86 bpm Max Heart Rate (APMHR): 165.809086 bpm Max HR Achieved: 150 bpm Target HR (85% APMHR): 140.180856 bpm % of APMHR: 90.91 Recovery HR: 102 bpm BP Resting BP: 130.0/86.0 mmHg Max BP: 155.0/80.0 mmHg Recovery BP: 137.0/80.0 mmHg ECG Resting ECG: Sr/ PVC Stress ECG Conclusion Max HR: 150 % of PM: 90% Max BP: 155/80 Mets: 6.5 Test stopped due to: Dyspnea PVC Less than 0.5mm upsloping ST segment changes Parra treadmill score +4 Electronically signed by : Joy Victoria MD 06/05/2025 15:10:47
--- OUTSIDE RECORDS SUMMARY | 2025-06-05 10:31 | XMS_ITS | Patient Health Record ---
[facility] Address [address] [place] [id number] Care Team Providers Care Sports Journalist Name Role Phone Hemant Echavarria Primary Care Provider [phone] Janeth Stacy Unavailable [phone] Allergies No Known Allergies Results Component Value [...] of he art disease (Z82.49) [facility] Referring Provider First Name Janeth Cobb Referring Provider Last Name Regis Referring Provider Speciality Family Pra ctice Referred Provider Rayshawn Davis Referred Provider Specialty Cardiovascul ar Disease General Notes Kanwal Pineda 2024 10:48:59 AM > faxed to [facility] Cardiology, Kanwal Pineda 05/01/2025 10:36:43 AM > received by Dotty at [facility] Cardiology Referral Priority Routine Reason home sleep study did not show any significant sleep apnea. He reported symptoms of heavy snoring at his last OV. If there are still concerns about sleep apnea, recommend referral to sleep specialist for possible supervised sleep study Diagnosis 1 Sleep apnea (G47.30) Referral Organization [facility] Referring Provider First Name Janeth Cobb Referring Provider Last Name Regis Referring Provider Speciality Family Dhruv keene Referred Provider Nichelle Subramanian Referred Provider Specialty Neurology General Notes Kanwal Pineda 2024 11:27:15 AM > faxed to [facility] Neurology, Kanwal Pineda 05/23/2025 10:57:28 AM > confirmed received by Serena in neurology Referral Priority Routine Medications Medication SIG (Take, [...] Status Risk Notes Problem Gastroesophageal reflux disease (012843067) GERD (gastroesophage al reflux disease) (K21.9) Active confirmed Problem Seasonal allergy (966406791) Seasonal allergies (J30.2) Active confirmed Problem Asthma (870007648) Asthma (J45.909) Active confirmed Problem Sleep apnea (16387086) Sleep apnea (G47.30) Active confirmed Problem Overweight (834001994) Overweight (E66.3) Active confirmed Problem Excessive thirst (04231381) Polydipsia (R63.1) Active confirmed Problem Exacerbation of intermittent asthma (356226509) Asthmatic bronchitis, mild intermittent, with acute exacerbation (J45.21) Active confirmed Problem Displacement of cervical intervertebral disc without myelopathy (96938870) Herniated disc, cervical (M50.20) Active confirmed Vital Signs Heart Rate 82 /min 04/24/2025 Blood pressure diastolic 80 mm Hg 04/24/2025 Height 69 in 04/24/2025 Blood pressure systolic 120 mm Hg 04/24/2025 Weight 261.2 lbs 04/24/2025 BMI 38.57 kg/m2 04/24/2025 Encounters Encounter Location Date Provider Diagnosis [place] [address] [place] [address] [place] [id number] 07/23/2024 Janeth Stacy Shingles B02.9 [facility] [address] [place] [address] [place] [id number] 04/24/2025 Janeth Stacy Screening for diabet es mellitus Z13.1 ; Sleep apnea G47.30 ; Screening for prostate cancer Z12.5 ; Screening for lipid disorders Z13.220 ; Overweight E66.3 ; Family history of heart disease Z82.49 and Screening for colon cancer Z12.11 [facility] [address] [place] [address] [place] [id number] 05/22/2025 Hemant Newcomb [facility] [place] [id number] 05/20/2025 Janeth Stacy Sleep apnea G47.30 Assessments Encounter Date Diagnosis (ICD Code) Assessment Notes Treatment Notes Treatment Clinical Notes Section Notes 07/23/2024 Shingles (ICD-10 - B02.9) He is past the window for treatment with antivirals and the lesions are drying. Recommmend he consider taking the shingles vaccine 04/24/2025 Screening for diabetes mellitus (ICD-10 - Z13.1) 04/24/2025 Sleep apnea (ICD-10 - G47.30) 05/20/2025 Sleep apnea (ICD-10 - G47.30) 04/24/2025 Screening for prostate cancer (ICD-10 - Z12.5) 04/24/2025 Screening for lipid disorders (ICD-10 - Z13.220) 04/24/2025 Overweight (ICD-10 - E66.3) 04/24/2025 Family history of heart disease (ICD-10 - Z82.49) 04/24/2025 Screening for colon cancer (ICD-10 - Z12.11) Plan Of Treatment Pending Test Test Name Order Date Cologuard 04/24/2025 Insurance Providers Payer Name Payer Address Payer Phone Subscriber Number Group Number Insured Name Patient Relationship to Insured Coverage Start Date Coverage End Date FAN[employer]U WARNER [address] [place] [address] [phone] [id number] Pelon DEE Self - patient is the insured Medical (General) History Medical History History ICD Code Asthma kidney stones heart palpitations due to caffeine intak e Environmental allergies Surgical History Surgery Date(Month/Year) vasectomy kidney stones Cervical Discectomy - Dr. Soliman 06/18/18 Umbilical Hernia Repair 12/15/2022 Hospitalization History Reason Date(Month/Year)
[2025-06-05 10:59] VITALS: BP 136/84; BP 155/80; PULSE 86; RESP 14
--- NOTE | 2025-06-05 11:15 | CA_ITS ---
APPROVED REPORT EXAM: Comprehensive 2D, Doppler, and color-flow Echocardiogram [employer] Instructor: Sweta Grimes RT(R) Ht: 5 ft 8 in Wt: 260lbs BSA: 2.28 BP: 146/95 mmHg Indications: SOA, family history of Heart disease. 2D Dimensions LVEF (Woodson's) 46.20 % M: 52 - 72 LV Volume 126.30 mL M: 62 - 150 LV Volume Index 55.2 mL/m2 M: 34 - 74 EF AP4 60.60 % EF AP2 34.3 % EF BP 46.2 % GL Strain -16.9 % M-Mode Dimensions RVDd 3.36 cm (0.9-2.6) LA Diam 2.95 cm (1.9-4.0) LVDd 4.56 cm (3.5-5.7) LVDs 3.56 cm (3.5-5.7) IVSd 1.04 cm (0.6-1.1) PWd 0.60 cm (0.6-1.1) EF (Teich) 44.40% FS 21.90% EDV (Teich) 95.40 mL ESV (Teich) 53.00 mL LV Diastology E Decel Time 150 (160-240 msec) E/A Ratio 0.7 Mitral Valve MV E Max Clint. 58.0 (40-130 cm/s) MV A Velocity 83.0 (40-130 cm/s) E/A Ratio 0.70 MV PHT 44.0 ms Left Ventricle The left ventricle is normal size. Left ventricular systolic function is normal. The left ventricular ejection fraction is within the normal range. There is increased left ventricular wall thickness. There is normal LV segmental wall motion. The left ventricular diastolic function is normal. LVEF is 55% Right Ventricle The right ventricle is normal size. The right ventricular systolic function is normal. Atria The left atrium size is normal. The right atrium size is normal. There is no color Doppler evidence of interatrial shunt. Aortic Valve The aortic valve opens well. There is no hemodynamically significant aortic valvular stenosis. No aortic regurgitation is present. Mitral Valve The mitral valve is normal in structure. No evidence of mitral valve stenosis. Trace mitral regurgitation is present. Tricuspid Valve The tricuspid valve leaflets are thin and pliable. Trace tricuspid regurgitation. There is insufficient TR jet to estimate RVSP. Pulmonic Valve The pulmonary valve is grossly normal in structure. Trace pulmonic valve regurgitation is present. Great Vessels The aortic root is normal in size. IVC is normal in size and collapses >50% with inspiration. Pericardium There is no pericardial effusion. Other Information Study Quality: Technically Difficult Conclusion Technically difficult study. Normal biventricular systolic function. No significant valvular stenosis or regurgitation. Electronically signed by : Joy Victoria MD 06/09/2025 02:05:53
== END 2025-06-05 23:59 | disposition home or self-care (01) ==
LOC: RT 10:17
PROVIDERS: PCP Family Medicine; Visit Provider Nurse Practitioner
DX: I49.3 Ventricular premature depolarization (principal); R53.83 Other fatigue; Z82.49 Family history of ischemic heart disease and other diseases of the circulatory system
CPT/HCPCS: 93017; 93018; 93306

== ENCOUNTER 2025-06-24 07:31 | Outpatient (CLI) | payer BC, SELFPAY ==
--- OUTSIDE RECORDS SUMMARY | 2024-07-23 07:15 | XMS_ITS ---
Author Organization [facility] Address [address] [facility] [address] [place] [phone] Care Team Providers Care Deckhand Fishing Vessel Name Role Phone Hemant Echavarria Primary Care Provider Janeth Stacy Unavailable [phone] Allergies No Known Allergies REASON FOR VISIT Poison [place] or Shingles Medications Medication SIG (Take, Route, Frequency, Duration) Notes Start Date End Date Status Aspir-Low 81 MG 1 tablet Orally Once a day; Duration: 30 day(s) Active Omeprazole 40 MG 1 cap(s) orally once a day prn Active Symbicort 160-4.5 MCG/ACT INHALE 2 PUFFS INTO THE LUNGS TWICE DAILY; Duration: 90 days Active Albuterol Sulfate HFA 108 (90 Base) MCG/ACT INHALE 2 PUFFS EVERY 4 HOURS NEEDED; Duration: 30 Active Vital Signs Weight 264.8 lbs 07/23/2024 Blood pressure systolic 120 mm Hg 07/23/20 24 Blood pressure diastolic 74 mm Hg 024 Heart Rate 95 /min 07/23/2024 Height 69 in 07/23/2024 BMI 39.10 kg/m2 07/23/2024 264.8 Encounters Encounter Location Date Provider Diagnosis Jorge [address] [facility] [address] [place] [phone] 07/23/2024 Janeth Stacy Shingles B02.9 Assessments Encounter Date Diagnosis (ICD Code) Assessment Notes Treatment Notes Treatment Clinical Notes Section Notes 07/23/2024 Shingles (ICD-10 - B02.9) He is past the window for treatment with antivirals and the lesions are drying. Recommmend he consider taking the shingles vaccine Plan Of Treatment Treatment Notes Assessment Notes Shingles He is past the windo w for treatment with antivirals and the lesions are drying. Recommmend he consider taking the shingles vaccine Next Appt Details Follow Up: prn, Reason: Progress Notes * Philly DEEeDOB:1970 ( 54 yo M)Acc No.[id number]:07/23/2024 Progress Notes Patient: Pelon URBAN Provider: Janeth Stacy M.D. :1970 A ge:53 Y S ex:Male Date:07/23/2024 Address:[address] [place] [address], [id number] Pcp:Hemant Echavarria Subjective: * Chief Complaints: * 1 . Poison [place] or Shingles. * HPI: D ermatology: 53 year old male presents with c/o rash P t sts he thought he may have poison nicanor, but sts his is a nurse and she believes it may be shingles. Pt sts it is painful and has blisters. Pt sts it is on his right side and sts it has been there for 9 days. Pt sts he has used a prescription he had for poison nicanor before, but sts it has not helped. * ROS: D ERMATOLOGY: no R surinder. [...] 2 PUFFS EVERY 4 HOURS NEEDED , Medication List reviewed and reconciled with the patient * Allergies: N .K.D.A. Objective: * Vitals: W t:264.8, Temp:99.0, BP:120/74, HR:95, O2 Sat:96% ON ra, Nurse:JOVANA, Ht: 69, BMI:39.10. 264.8. * Examination: D ermatology: Trunk: well circumscribed cluster of dried blisters on right lateral abdominal wall measuring about 3 x 5 cm. Assessment: * Assessment: 1. [facility] - B02.9 (Primary) Plan: * Treatment: * Procedure Codes: 9 4760 PULSE OX * Follow Up: p rn * Images: Billing Information: * Visit Code: 01787 Office Visit, Est Pt., Level 3. * Procedure Codes: 75115 PULSE OX. * Electronic signature of Janeth Stacy MD on 06/24/2025 at 07:35 AM EDT Sign off status: Pending * Provider: Janeth Stacy M.D. Date: Generated for Aki tapia/Aida/Saúlitting on: 0 06/24/2025 07:35 AM EDT History and Physical Notes * HPI (History of Present Illness) Category Sub-Category Detail Notes Category Not es Dermatology rash Pt sts he though t he may have poison nicanor, but sts his is a nurse and she believes it may be shingles. Pt sts it is painful and has blisters. Pt sts it is on his right side and sts it has been there for 9 days. Pt sts he has used a prescription he had for poison nicanor before, but sts it has not helped Examination Category Sub-Category Detail Notes Category Not es Dermatology Trunk: well circumscrib ed cluster of dried blisters on right lateral abdominal wall measuring about 3 x 5 cm
--- OUTSIDE RECORDS SUMMARY | 2025-04-24 10:30 | XMS_ITS ---
Author Organization [facility] Address [address] [place] [id number] Care Team Providers Care Correctional Treatment Specialist Name Role Phone Hemant Echavarria Primary Care Provider Janeth Stacy Unavailable [phone] Allergies No Known Allergies Results Component Value Reference Range Notes Lipid Profile Reviewed date:05/22/2025 10:36:37 PM Interpretation:see CMP Performing Lab: Notes/Report: see CMP Prostate Specific Antigen (P SA) Reviewed date:05/22/2025 10:36:46 PM Interpretation:see CMP Performing Lab: Notes/Report: see CMP Glycohemoglobin (HbA1C) Reviewed date:05/22/2025 10:36:58 PM Interpretation:see CMP Performing Lab: Notes/Report: see CMP CMP Reviewed date:05/22/2025 10:36:22 PM Interpretation: Performing Lab: Notes/Report: sleep study Reviewed date:05/20/2025 08:32:40 AM Interpretation:negative Performing Lab: Notes/Report: negative Reason For Referral Reason Risk stratification due to strong family hx of heart disease Diagnosis 1 Family history of he art disease (Z82.49) [facility] Referring Provider First Name Janeth Cobb Referring Provider Last Name Regis Referring Provider Speciality Family Pra ctice Referred Provider Rayshawn Davis Referred Provider Specialty Cardiovascul ar Disease General Notes Kanwal Pineda 2024 10:48:59 AM > faxed to [facility] Cardiology, Kanwal Pineda 05/01/2025 10:36:43 AM > received by Dotty at [facility] Cardiology Referral Priority Routine REASON FOR VISIT wellness visit/wants referrals Medications Medication SIG (Take, Route, Frequency, Duration) Notes Start Date End Date Status Symbicort 160-4.5 MCG/ACT 2 puffs Inhalation twice a day; Duration: 30 days PT NEEDS APPT Active Omeprazole 40 MG 1 cap(s) orally once a day prn Active Albuterol Sulfate HFA 108 (90 Base) MCG/ACT INHALE 2 PUFFS EVERY 4 HOURS NEEDED; Duration: 30 Active Aspir-Low 81 MG 1 tablet Orally Once a day; Duration: 30 day(s) Active Problems Problem Type SNOMED Code ICD Code Onset Dates Problem Status W/U Status Risk Notes Problem Sleep apnea (66024137) Sleep apnea (G47.30) Active confirmed Problem Overweight (757733930) Overweight (E66.3) Active confirmed Vital Signs Weight 261.2 lbs 04/24/2025 Blood pressure systolic 120 mm Hg 04/24/20 25 Blood pressure diastolic 80 mm Hg 025 Heart Rate 82 /min 04/24/2025 Height 69 in 04/24/2025 BMI 38.57 kg/m2 04/24/2025 Encounters Encounter Location Date Provider Diagnosis [facility] [address] [facility] [address] [place], [place] [id number] 04/24/2025 Janeth Stacy Screening for diabet es mellitus Z13.1 ; Sleep apnea G47.30 ; Screening for prostate cancer Z12.5 ; Screening for lipid disorders Z13.220 ; Overweight E66.3 ; Family history of heart disease Z82.49 and Screening for colon cancer Z12.11 Assessments Encounter Date Diagnosis (ICD Code) Assessment Notes Treatment Notes Treatment Clinical Notes Section Notes 04/24/2025 Screening for diabetes mellitus (ICD-10 - Z13.1) 04/24/2025 Sleep apnea (ICD-10 - G47.30) 04/24/2025 Screening for prostate cancer (ICD-10 - Z12.5) 04/24/2025 Screening for lipid disorders (ICD-10 - Z13.220) 04/24/2025 Overweight (ICD-10 - E66.3) 04/24/2025 Family history of heart disease (ICD-10 - Z82.49) 04/24/2025 Screening for colon cancer (ICD-10 - Z12.11) Plan Of Treatment Pending Test Test Name Order Date Cologuard 04/24/2025 Referrals Referral Date Details 04/25/2025 04/25/2025, Risk str atification due to strong family hx of heart disease, Rayshawn Davis Next Appt Details Follow Up: via phone to repo rt test results, Reason: Progress Notes * Philly DEEeDOB:1970 ( 54 yo M)Acc No.[id number]:04/24/2025 Progress Notes Patient: Pelon URBAN Provider: Janeth Stacy M.D. :1970 A ge:54 Y S ex:Male Date:04/24/2025 Address:[address] [place] [address], [place], [place] Pcp:Hemant Echavarria Subjective: * Chief Complaints: * 1 . Wellness visit/wants referrals. * HPI: H PI: Patient comes in for an annual checkup and has several concerns. This 56-year-old brother last year with a heart attack. Pelon denies any cardiac symptoms but would like to see a trim and burr operator for risk stratification. E NT/respiratory: His tells him he snores heavily and has noticed some symptoms of apnea and he is requesting a sleep study. G astroenterology: He has not had colon cancer screening. * ROS: D ERMATOLOGY: no R surinder. [...] 12/15/2022. * Family History: F ather: alive 81 yrs, diagnosed with Hypertension, Diabetes. M other: alive 87 yrs. 2 brother(s) . 3 son(s) . . 3 step sisters, 1 step brother. * Social History: C URRENT TOBACCO USE: No . C affeine: yes, frequency: 2 sodas daily. Home smoke detector use: yes. Alcohol: No. * Medications: T lalyg Aspir-Low 81 MG Tablet Delayed Release 1 tablet Orally Once a day , Taking Omeprazole 40 MG Capsule Delayed Release 1 cap(s) orally once a day prn , Taking Albuterol Sulfate HFA 108 (90 Base) MCG/ACT Aerosol Solution INHALE 2 PUFFS EVERY 4 HOURS NEEDED , Taking Symbicort 160-4.5 MCG/ACT Aerosol 2 puffs Inhalation twice a day , Notes to Pharmacist: PT NEEDS APPT, Medication List reviewed and reconciled with the patient * Allergies: N .K.D.A. Objective: * Vitals: W t: 261.2, Temp: 98.4, BP: 120/80, HR: 82, O2 Sat: 98% on RA, Nurse: marybeth, Ht: 69, BMI:38.57. * Examination: C ardiology: General Appearance: p leasant, NAD. Weight noted.?HEENT: u nremarkable. C arotid upstroke: n ormal, no bruits. H eart sounds: R RR, normal S1, S2. M urmur, click , gallop: n one. L ungs: c lear, no rales or wheezes. A bdomen: p ositive BS, soft, nontender. E xtremities: n o leg edema. Assessment: * Assessment: 1. S leep apnea - G47.30 (Primary) 2 . S creening for diabetes mellitus - Z13.1 3 . S creening for prostate cancer - Z12.5 4 . S creening for lipid disorders - Z13.220 5 . O verweight - E66.3 6 . Family history of heart disease - Z82.49 7 . S creening for colon cancer - Z12.11 Plan: * Treatment: 2.?Family history of heart disease? Referral To:Rayshawn Davis??Cardiovascular Disease ?Reason:Risk stratification due to strong family hx of heart disease 3.?Screening for colon cancer?LAB: Herlinda Ramos 05/21/2025 03: 51:13 PM EDT > order faxed * Labs: * L ab: Glycohemoglobin (HbA1C) (Collection Date & Time - 05/05/2025) s ee CMP L ab: Prostate Specific Antigen (PSA) (Collection Date & Time - 05/05/2025) s ee CMP L ab: CMP (Collection Date & Time - 05/05/2025) ?Lab: Lipid Profile (Collection Date & Time - 05/05/2025)?see CMP * Procedure Codes: 1 036F TOBACCO NON-USER, 3074F SYST BP LT 130 MM HG, 3079F DIAST BP 80-89 MM HG * Follow Up: v ia phone to report test results * Images: Billing Information: * Visit Code: 20673 Office Visit, Est Pt., Level 4. * Procedure Codes: 1036F TOBACCO NON-USER. 3074F SYST BP LT 130 MM HG. 3079F DIAST BP 80-89 MM HG. * Electronic signature of Janeth Stacy MD on 06/24/2025 at 07:35 AM EDT Sign off status: Pending * Provider: Janeth Stacy M.D. Date: 0 04/24/2025 Generated for Aki ng/Aida/eTransmitting on: 0 06/24/2025 07:35 AM EDT History and Physical Notes * Examination Category Sub-Category Detail Notes Category Not es Cardiology Lungs: clear, no rales or wheezes HEENT: unremarkable Heart sounds: RRR, normal S1, S2 Abdomen: positive BS, soft, n ontender Carotid upstroke: normal, no bruits Extremities: no leg edema Murmur, click , gallop: none General Appearance: pleasant, NAD. Weigh t noted Consultation Request Notes Referral Date Referring Provider Referred Provider Not es 04/25/2025 Janeth Stacy Matthew Risk stratification due to strong family hx of heart disease
--- OUTSIDE RECORDS SUMMARY | 2025-05-20 04:29 | XMS_ITS ---
Author Organization [facility] Address [address] [place] [phone] Care Team Providers Care Handkerchief Maker Name Role Phone Hemant Echavarria Primary Care Provider [phone] Janeth Stacy Unavailable [phone] Reason For Referral Reason home sleep study did not show any significant sleep apnea. He reported symptoms of heavy snoring at his last OV. If there are still concerns about sleep apnea, recommend referral to sleep specialist for possible supervised sleep study Diagnosis 1 Sleep apnea (G47.30) [facility] Referring Provider First Name Janeth Cobb Referring Provider Last Name Regis Referring Provider Speciality Family Pra ctice Referred Provider Nichelle Subramanian Referred Provider Specialty Neurology General Notes Kanwal Pineda 2024 11:27:15 AM > faxed to [facility] Neurology, Kanwal Pineda 05/23/2025 10:57:28 AM > confirmed received by Serena in neurology Referral Priority Routine REASON FOR VISIT Test Results and referral Encounters Encounter Location Date Provider Diagnosis Jorge [address] [place] [phone] 05/20/2025 Janeth Stacy Sleep apnea G47.30 Assessments [...] * Philly DEEeDOB:1970 ( 54 yo M)Acc No.[id number]:05/20/2025 Patient: Pelon URBAN :1970 A ge:54 Y S ex:Male Address:[address] [place] [address], [place], [place], [facility] Subjective: * Chief Complaints: * T est Results and referral * Medical History: * Surgical History: * Hospitalization/Major Diagno stic Procedure: * Medications: Objective: * Vitals: * Physical Examination: Assessment: * Assessment: 1. S leep apnea - G47.30 (Primary) Plan: * Treatment: * Procedure Codes: * true * Date: Generated for Printi ng/Faanag/eTransmitting on: 0 06/24/2025 07:35 AM EDT Consultation Request Notes Referral Date Referring Provider Referred Provider Not es 05/21/2025 Janeth Stacy Maria home sleep study did not show any significant sleep apnea. He reported symptoms of heavy snoring at his last OV. If there are still concerns about sleep apnea, recommend referral to sleep specialist for possible supervised sleep study
[2025-06-24] VITALS (7 sets, daily range): BP systolic 113–153; BP diastolic 65–99; PULSE 55–77; RESP 18; O2SAT 98–100; BMI 39.5
--- OUTSIDE RECORDS SUMMARY | 2025-06-24 07:35 | XMS_ITS | Patient Health Record ---
[facility] Address [address] [place] [id number] Care Team Providers Care Warp Hanger Name Role Phone Hemant Echavarria Primary Care Provider [phone] Janeth Stacy Unavailable [phone] Allergies No Known Allergies Results Component Value Reference Range Notes sleep study Reviewed date:05/20/2025 08:32:40 AM Interpretation:negative Performing Lab: Notes/Report: negative Lipid Profile Reviewed date:05/22/2025 10:36:37 PM Interpretation:see CMP Performing Lab: Notes/Report: see CMP Prostate Specific Antigen (P SA) Reviewed date:05/22/2025 10:36:46 PM Interpretation:see CMP Performing Lab: Notes/Report: see CMP Glycohemoglobin (HbA1C) Reviewed date:05/22/2025 10:36:58 PM Interpretation:see CMP Performing Lab: Notes/Report: see CMP CMP Reviewed date:05/22/2025 10:36:22 PM Interpretation: Performing Lab: Notes/Report: Reason For Referral Reason Risk stratification due to strong family hx of heart disease Diagnosis 1 Family history of he art disease (Z82.49) [facility] Referring Provider First Name Janeth Cobb Referring Provider Last Name Regis Referring Provider Speciality Family Pra ctice Referred Provider Rayshawn Davis Referred Provider Specialty Cardiovascul ar Disease General Notes Kanwal Pineda 2024 10:48:59 AM > faxed to [facility] Cardiology, Kanwal Pineda 05/01/2025 10:36:43 AM > received by Dotty at [facility] Cardiology Referral Priority Routine Reason home sleep [...] Pineda 2024 11:27:15 AM > faxed to [facility] Neurology, Kanwal Pineda 05/23/2025 10:57:28 AM [...] Status Risk Notes Problem Gastroesophageal reflux disease (158376959) GERD (gastroesophage al reflux disease) (K21.9) Active confirmed Problem Seasonal allergy (893785302) Seasonal allergies (J30.2) Active confirmed Problem Asthma (850809873) Asthma (J45.909) Active confirmed Problem Sleep apnea (92859587) Sleep apnea (G47.30) Active confirmed Problem Overweight (162258422) Overweight (E66.3) Active confirmed Problem Excessive thirst (53224802) Polydipsia (R63.1) Active confirmed Problem Exacerbation of intermittent asthma (241626023) Asthmatic bronchitis, mild intermittent, with acute exacerbation (J45.21) Active confirmed Problem Displacement of cervical intervertebral disc without myelopathy (54906290) Herniated disc, cervical (M50.20) Active confirmed Vital Signs Heart Rate 82 /min 04/24/2025 Blood pressure diastolic 80 mm Hg 04/24/2025 Height 69 in 04/24/2025 Blood pressure systolic 120 mm Hg 04/24/2025 Weight 261.2 lbs 04/24/2025 BMI 38.57 kg/m2 04/24/2025 Encounters Encounter Location Date Provider [facility] [address] [place] [address] [place] [id number] 07/23/2024 R Reza Stacy Shingles B02.9 [facility] [address] [place] [address] [place] [id number] 04/24/2025 R Reza Stacy Screening for diabet es mellitus Z13.1 ; Sleep apnea G47.30 ; Screening for prostate cancer Z12.5 ; Screening for lipid disorders Z13.220 ; Overweight E66.3 ; Family history of heart disease Z82.49 and Screening for colon cancer Z12.11 [facility] [address] [place] [address] [place] Sing[place] [id number] 05/20/2025 Janeth Stacy Sleep apnea G47.30 [facility] [address] [place] [address] [place] [id number] 05/22/2025 Hemant Echavarria Assessments Encounter Date Diagnosis (ICD Code) Assessment [...] Date FANNY ANU WARNER [address] [place] [address] [id number] Pelon DEE Self - patient is the insured Medical (General) History Medical History History ICD Code Asthma kidney stones heart palpitations due to caffeine intak e Environmental allergies Surgical History Surgery Date(Month/Year) vasectomy kidney stones Cervical Discectomy - Dr. Soliman 06/18/18 Umbilical Hernia Repair 12/15/2022 Hospitalization History Reason Date(Month/Year)
[2025-06-24 08:23] LABS: Anion Gap 12.2 mEq/L (5-15); Blood Urea Nitrogen 11 mg/dl (9-20); Calcium 9.3 mg/dl (8.4-10.2); Carbon Dioxide 27 mmol/L (22.0-30.0); Chloride 101 mmol/L (98-107); Creatinine Clearance Estimated 174 mL/min (50-200); Creatinine,Serum 0.80 mg/dl (0.66-1.25); Estimated Glomerular Filt Rate 100 ml/min (>60); GFR (African American) 121 ML/MIN (>60); Glucose 107 mg/dl (74-100); Potassium 4.2 mmoL/L (3.5-5.1); Sodium 136 mmol/L (136-145)
--- NOTE | 2025-06-24 08:30 | CT_ITS ---
APPROVED REPORT Dental Assistant Medical Assistant: CLINICAL INDICATION Chest Pain TECHNIQUE Image Acquisition: A 128 slice MDCT scanner ([employer] View) was used for data acquisition. A noncontrast coronary calcium scan was performed. A CT attenuation threshold of 130 Hounsfield units (HU) was used for the detection of calcium in contiguous voxels of 1 sq mm in area to be counted as individual lesions. Bolus tracking in the ascending aorta with a threshold of 180 HU was performed. Immediately afterwards, ECG synchronized cardiac CT was then performed from the cardiac base to apex using retrospective gating with ECG tube current modulation. A total of 85 mL of Isovue 370 mg/mL contrast medium was administered at 5 mL/sec followed by a saline flush using a biphasic injection protocol. A tube voltage of 120 KVp was used. The patient received the following medications prior to the cardiac CT. 50 mg of oral metoprolol 15 mg of oral ivabradine 0.8 mg of sublingual nitroglycerin The average heart rate at the time of acquisition was 67 bpm and regular. Image Reconstruction Transaxial images were reconstructed at 0.67 mm slide thickness. Data was reviewed interactively on an advanced workstation capable of 2 and 3-dimensional displays in all conventional reconstruction formats, including multiplanar reformations, maximum intensity projections, curved multiplanar reformations, and volume rendered reconstructions. When applicable, selected routine images describing the relevant coronary anatomy and pathology were saved and sent to PACS. Complications None Technical Quality Overall image quality was good. Coronary artery opacification was adequate. Total DLP (Dose-Length Product) is 1247.8 mGy-cm. The reported value represents the total of one or more individual components during the CT acquisition of this date and at this time, and as such, the same value may appear in more than one CT report depending on the interpreting/reporting physicians. COMPARISON None FINDINGS CT Coronary Calcium Scoring LMA (Left Main Artery) = 0 LAD (Left Anterior Descending) = 0 LCX (Left Coronary Circumflex) = 0 RCA (Right Coronary Artery) = 0 Total Calcium Score = 0 using the AJ-130 method. The interpretation of the calcium heart score is based on the following continuum*: 0 = no calcified plaque detected (risk of coronary artery disease is very low ??? less than 5%) 1-10 = calcium detected in extremely minimal levels (risk of coronary diseases is still low ??? less than 10%) 11-100 = mild levels of plaque detected with certainty (mild or minimal narrowing of heart arteries is likely) 101-400 = definite,at least moderate levels of plaque detected (relatively high risk of a heart attack within 3-5 years) >401-999 = extensive levels of plaque detected (high risk of heart attack, high levels of vascular disease are present, high likelihood of at least one significant coronary narrowing) *The calcium heart score quantifies the burden of coronary calcification/plaque in the coronary arteries. The calcium heart score is not able to evaluate the presence or burden of non-calcified (i.e. soft) plaque. There is no identifiable calcification in the aortic valve, mitral annulus or mitral valve, pericardium, or myocardium. Coronary CT Angiography The coronary arterial system is right dominant. Quantitative Stenosis Grading: Left Main (LM): The left main originates normally from the left sinus of Valsalva. The LM bifurcates into the left anterior descending artery and left circumflex artery. The LM is patent with no evidence of atherosclerosis. Left Anterior Descending (LAD) and Diagonal Branches: The LAD gives off 3 diagonal branch(es). The LAD and its branches are patent with no evidence of atherosclerosis. There is no evidence of LAD-myocardial bridge. Left Circumflex (LCX) and Obtuse Marginals (OM): The LCX gives off 1 Obtuse Marginal (OM) branch(es). The LCX and its branches are patent with no evidence of atherosclerosis. Right Coronary Artery (RCA): The RCA originates normally from the right sinus of Valsalva. The RCA gives off a posterior descending artery (PDA) and posterolateral (PL) branches. The RCA and its branches are patent with no evidence of atherosclerosis. Non-Coronary Cardiac Findings: Analysis of the left ventricular (LV) structure and function was performed after 3-D reconstruction of the LV from axial images, with user-corrected automatic contouring for assessment of LV volumes and user-defined reconstruction from oblique planes for measurement of 3-D cardiac structure and function. -The left ventricle systolic function is normal. -There is no left atrial appendage filling defect. Two right pulmonary veins and two left pulmonary veins drain normally into the left atrium. -No pericardial thickening or calcification. -Central and branch pulmonary arteries in the [id number] are unremarkable. -Thoracic aorta within the visualized thoracic aortic-branches in the [id number] is unremarkable. Extracardiac Structures No significant extra-cardiac findings. Note, however, that this study is focused on the cardiac findings. IMPRESSION -Absence of coronary calcification with an Agatston score = 0 using the AJ-130 method. -No evidence of significant flow-limiting atherosclerosis of the coronary arteries. -CAD-RADS 0. Management recommendations per ACC/AHA guidelines*, as clinically appropriate. *Recommendations: CAD RADS 0: Reassurance. Consider non-atherosclerotic causes of chest pain. CAD RADS 1: Consider non-atherosclerotic causes of chest pain. Consider preventive therapy and risk factor modification. CAD RADS 2: Consider non-atherosclerotic causes of chest pain. Consider preventive therapy and risk factor modification, particularly for patients with nonobstructive plaque in multiple segments. CAD RADS 3: Consider further functional testing. Consider symptom-guided anti-ischemic and preventive pharmacotherapy as well as risk factor modification per published guideline statements. CAD RADS 4A: Consider further functional testing or invasive coronary angiography with revascularization per published guideline statements. Consider symptom-guided anti-ischemic and preventive pharmacotherapy as well as risk factor modification per published guideline statements. CAD RADS 4B: Invasive coronary angiography recommended with revascularization per published guideline statements. Consider symptom-guided anti-ischemic and preventive pharmacotherapy as well as risk factor modification per published guideline statements. CAD RADS 5: Consider invasive angiography and/or viability assessment with revascularization per published guideline statements. Consider symptom-guided anti-ischemic and preventive pharmacotherapy as well as risk factor modification per published guideline statements. CRITICAL RESULT None COMMUNICATION Per this written report The coronary and cardiac findings of this CCTA were reviewed, reported, and signed by Callum Victoria MD (Piano Professor) Conclusion Electronically signed by : Joy Victoria MD 06/25/2025 17:23:35
[2025-06-24] MEDS: IVABRADINE HCL 7.5MG TABLET PO (08:46)
[2025-06-24] MEDS: METOPROLOL TARTRATE 50MG TABLET PO (08:46)
[2025-06-24] MEDS: NITROGLYCERIN 0.4MG SL TABLET SL (09:45)
[2025-06-24] MEDS: IOPAMIDOL-370 (76%);100ML BOTTLE 85 ML IV (10:00)
[2025-06-24] MEDS: SODIUM CHLORIDE 0.9% 10ML SYR (RAD ONLY) 10 ML IV (10:00)
[2025-06-24] MEDS: 0.9 % SODIUM CHLORIDE 50 ML VIAL IV (10:00)
== END 2025-06-24 10:30 | disposition home or self-care (01) ==
PROVIDERS: PCP Family Medicine; Visit Provider Nurse Practitioner
DX: R07.9 Chest pain, unspecified (principal); R06.02 Shortness of breath; R53.83 Other fatigue; Z82.49 Family history of ischemic heart disease and other diseases of the circulatory system
CPT/HCPCS: 75574; 80048; Q9967